=== PATIENT | female | born 1950 | race Caucasian/White ===

== ENCOUNTER 2018-04-20 16:59 | Emergency (ER) | payer MEDICAID, MEDICARE ==
[~2018-04-20] VITALS: Ht 162.6 cm; Wt 92.1 kg
[~2018-04-20 16:59] MED LIST: FAMO20TA8 PO; FLUO20TA28 PO; GABA800T11 PO; LORA-259 PO; LOSA50TA39 PO; PANT40TA4 PO; TRAM50TA2 PO; TRAZ-182 PO
[2018-04-20 17:38] VITALS: BP 173/82
== END 2018-04-20 18:35 | disposition home or self-care (01) ==
LOC: ER 16:59
DX: B37.2 Candidiasis of skin and nail (principal); I10 Essential (primary) hypertension; E11.9 Type 2 diabetes mellitus without complications; J45.909 Unspecified asthma, uncomplicated; E78.00 Pure hypercholesterolemia, unspecified; Z98.890 Other specified postprocedural states; Z79.899 Other long term (current) drug therapy
CPT/HCPCS: 99282; A4606

== ENCOUNTER 2019-01-07 21:45 | Emergency (ER) | payer MEDICARE ==
[~2019-01-07] VITALS: Ht 162.6 cm; Wt 87.1 kg
[2019-01-07 21:52] VITALS: BP 144/85
--- NOTE | 2019-01-07 22:00 | NUR ---
yara. c/o "TOOK TOO MUCH CBD OIL FOR MY ANXIETY. FEELING NAUSEOUS, A BIT WEAK" -SOB AOX4. -NEURO DEFICITS NOTED. AMBULATORY W/O ASSISTANCE. PT AAOX4, VSS. RR EVEN & UNLABORED. DENIES CP, SOB, DIZZINESS @ THIS TIME. AWAITING EVAL BY ERMD/PA & WILL CONT TO MONITOR.
== END 2019-01-07 23:55 | disposition home or self-care (01) ==
LOC: ER 21:49
DX: F12.90 Cannabis use, unspecified, uncomplicated (principal); I10 Essential (primary) hypertension; E11.9 Type 2 diabetes mellitus without complications; J45.909 Unspecified asthma, uncomplicated; E78.00 Pure hypercholesterolemia, unspecified; Z98.890 Other specified postprocedural states; Z79.899 Other long term (current) drug therapy

== ENCOUNTER 2019-02-15 00:43 | Inpatient (IN) | payer BC, MEDICARE ==
[~2019-02-15] VITALS: Ht 162.6 cm; Wt 90.7 kg
--- NOTE | 2019-02-15 01:03 | NUR ---
PT TO BED 10 ER BIB RA FROM HOME C/O FEELING SCARED AFTER WAKING UP 1XHR AGO [employer]. DENIES DRUG USE. PT STATES THAT SHE CALLED 911 AFTER FEELING SICK. AAOX4. NO SOB. BREATHING EVENLY AND UNLABORED. CONNECTED TO MONITOR.
[2019-02-15] MEDS ORDERED: LORAZEPAM 1 MG TABLET ONE (01:12)
--- NOTE | 2019-02-15 01:13 | NUR ---
SEEN AND EXAMINED BY DR. LOPEZ
[2019-02-15] MEDS ORDERED: LORAZEPAM 1 MG TABLET PO ONE (01:30)
--- NOTE | 2019-02-15 02:02 | NUR ---
re-evaluated by Dr. Jon. Patient states that she wants to go to the [facility] admission to see a psychiatrist.
[2019-02-15] MEDS ORDERED: POTASSIUM CHLORIDE 20 MEQ TAB.PRT.SR PO ONE (03:08)
--- NOTE | 2019-02-15 06:31 | NUR ---
Admitted this 70 y/o female on voluntary status.Upon face to face to assessment ,patient is alert,oriented x 2-3,ambulatory , c/o feeling depressed, anxiety,and unable to fall asleep despite of the medications she's taking.Patient appears disheveled,unkempt and easily irritable and sarcastic.Patient was contraband ,refused skin assessment .Reviewed patient's Rights and verbalized understanding.Will continue to monitor q15 min rounds for safety.Will endorse to AM shift RN to continue the admission assessment.
[2019-02-15 07:53] LABS: ALANINE AMINOTRANSFERASE 22 U/L (12-78); ALBUMIN 3.9 g/dL (3.4-5.0); ALKALINE PHOSPHATASE 59 U/L (46-116); ASPARTATE AMINOTRANSFERASE 26 U/L (15-37); BILIRUBIN,TOTAL 0.3 mg/dL (0.2-1.0); CALCIUM, SERUM 10.5 mg/dL (8.5-10.1); CARBON DIOXIDE 36 mmol/L (21-32); CHLORIDE 98 mmol/L (98-107); CREATININE 1.7 mg/dL (0.6-1.3); GLUCOSE 132 mg/dL (74-106); POTASSIUM 2.9 mmol/L (3.5-5.1); SODIUM SERUM 144 mmol/L (136-145); THYROID STIMULATING HORMONE 2.562 uIU/mL (0.358-3.74); TOTAL PROTEIN, SERUM 7.9 g/dL (6.4-8.2); UREA NITROGEN, BLOOD 41 mg/dL (7-18)
[2019-02-15 07:54] LABS: BASOPHILS # (AUTO) 0.1 /CMM (0.0-0.2); BASOPHILS % (AUTO) 1.7 % (0.0-2.0); EOSINOPHILS % (AUTO) 9.6 % (0.0-6.0); HEMATOCRIT 42 % (33-45); LYMPHOCYTES # (AUTO) 1.6 /CMM (0.8-4.8); MEAN CORPUSCULAR HGB CONC 34 g/dl (31.0-36.0); MEAN CORPUSCULAR VOLUME 88 fL (82-100); MONOCYTES # (AUTO) 0.6 /CMM (0.1-1.30); MONOCYTES % (AUTO) 9.7 % (2.0-12.0); NEUTROPHILS # (AUTO) 2.9 /CMM (1.8-8.9); PLATELET COUNT (AUTO) 198 /CMM (150-450); RED BLOOD CELL COUNT(AUTO) 4.71 MIL/uL (4.0-5.2); WHITE BLOOD COUNT (AUTO) 5.7 K/uL (4.3-11.0)
--- NOTE | 2019-02-15 08:08 | NUR ---
late entry: see paper charting due to down time
[2019-02-15 09:27] LABS: SALICYLATE 2.1 mg/dL (2.8-20.0)
[2019-02-15 09:39] LABS: APPEARANCE,URINE SLIGHTLY CLOUDY (CLEAR); BILIRUBIN,URINE NEGATIVE (NEGATIVE); BLOOD, URINE N Ery/uL (NEGATIVE); COLOR,URINE YELLOW (YELLOW); KETONES,URINE NEGATIVE (NEGATIVE); PROTEIN,URINE NEGATIVE (NEGATIVE); UGLUCOSE NEGATIVE (NEGATIVE); UROBILINOGEN,URINE 0.2 EU/dL (0.2)
[2019-02-15 09:40] LABS: BACTERIA,URINE Moderate /HPF (None Seen); LEUKOCYTE ESTERASE ,URINE SMALL (NEGATIVE); NITRITE, URINE NEGATIVE (NEGATIVE); WBC,URINE TOO NUMEROUS TO COUN /HPF (0-3)
[2019-02-15 09:41] LABS: SQUAMOUS EPITHELIAL CELL,UR Moderate /HPF (None Seen)
[2019-02-15] MEDS ORDERED: BLOOD SUGAR DIAGNOSTIC 1 EACH STRIP IN ONE (10:30)
[2019-02-15] MEDS ORDERED: MAGNESIUM HYDROXIDE 30 ML UDC PO PRN (10:30)
[2019-02-15] MEDS ORDERED: MAG HYDROX/AL HYDROX/SIMETH 30 ML UDC PO PRN (10:30)
[2019-02-15 10:47] LABS: ALCOHOL, BLOOD < 3 mg/dL (0-0)
[2019-02-15 10:56] LABS: ACETAMINOPHEN 0 ug/ml (10-30)
[2019-02-15] MEDS ORDERED: LORAZEPAM 1 MG TABLET PO PRN (11:00)
[2019-02-15] MEDS ORDERED: ATOR10TA PO (11:03)
[2019-02-15] MEDS: DULOXETINE HCL 30 MG CAPSULE.DR PO SCH (11:26)
[2019-02-15] MEDS: POTASSIUM CHLORIDE 20 MEQ TAB.PRT.SR PO SCH ×2 (11:29→12:40)
--- NOTE | 2019-02-15 15:10 | NUR ---
GROUP NOTE: SW encouraged pt to participate in group therapy discussing "discharge planning." Pt presented naked in bed, SW asked pt to put clothes on and pt refused stating that she did not want to as she did not like wearing clothes. Pt has an ostomy bag and is not appropriate for group at this time.
[2019-02-15 16:46] VITALS: BP 160/99
[2019-02-15] MEDS: ACETAMINOPHEN 325 MG TABLET PO PRN (19:45)
[2019-02-15 20:47] VITALS: BP 134/74
[2019-02-15] MEDS: ATORVASTATIN 10 MG TABLET PO SCH (21:19)
[2019-02-15] MEDS: FAMOTIDINE (20 MG) 20 MG TABLET PO SCH (21:19)
[2019-02-15] MEDS: ZOLPIDEM TARTRATE 5 MG TABLET PO PRN (21:30)
[2019-02-16 07:25] LABS: ALBUMIN 3.3 g/dL (3.4-5.0); BILIRUBIN,TOTAL 0.3 mg/dL (0.2-1.0); CALCIUM, SERUM 9.4 mg/dL (8.5-10.1); CREATININE 1.4 mg/dL (0.6-1.3); POTASSIUM 3.2 mmol/L (3.5-5.1)
[2019-02-16 07:39] LABS: CHOLESTEROL 155 mg/dL (<200); HDL CHOLESTEROL 77 mg/dL (40-60); LDL 57 mg/dL (0-99); TRIGLYCERIDES 134 mg/dL (30-150)
[2019-02-16 08:00] VITALS: BP 114/66
[2019-02-16] MEDS ORDERED: POTASSIUM CHLORIDE 20 MEQ TAB.PRT.SR PO ONE (09:00)
[2019-02-16] MEDS: DULOXETINE HCL 30 MG CAPSULE.DR PO SCH (09:25)
[2019-02-16] MEDS: AMLODIPINE BESYLATE 5 MG TABLET PO SCH (09:25)
[2019-02-16] MEDS: FAMOTIDINE (20 MG) 20 MG TABLET PO SCH ×2 (09:25→20:58)
[2019-02-16] MEDS: ACETAMINOPHEN 325 MG TABLET PO PRN (13:48)
--- NOTE | 2019-02-16 15:04 | NUR ---
INITIAL DISCHARGE PLAN: Patient wishes to return home to [facility] [address] [address] . SW will help form a safe and proper discharge in collaboration with .
--- NOTE | 2019-02-16 15:05 | NUR ---
GROUP NOTE: SW encouraged pt to participate in group therapy discussing "insight into mental illness." Pt participated stating that she has suffered from depression all her life but had it under control for 20 years until she went to medication and it triggered all her trauma and depression. Pt stated that she "freaked out" and knew she has to be admitted into the hospital. Pt stated that she feel better and is not longer having thought of suicide and wants to be discharged tomorrow 02/17/19. Pt maintained appropriate eye contact, and was easily engaged in conversation. Pts mood appeared euthymic with congruent affect.
[2019-02-16 16:00] VITALS: BP 100/58
[2019-02-16 20:30] VITALS: BP 135/70
[2019-02-16] MEDS: ATORVASTATIN 10 MG TABLET PO SCH (21:05)
[2019-02-16] MEDS: ZOLPIDEM TARTRATE 5 MG TABLET PO PRN (21:55)
[2019-02-17 08:00] VITALS: BP 124/72
[2019-02-17] MEDS: FAMOTIDINE (20 MG) 20 MG TABLET PO SCH ×2 (08:22→20:38)
[2019-02-17] MEDS: DULOXETINE HCL 30 MG CAPSULE.DR PO SCH (08:22)
[2019-02-17] MEDS: ACETAMINOPHEN 325 MG TABLET PO PRN ×3 (08:29→22:26)
[2019-02-17] MEDS: AMLODIPINE BESYLATE 5 MG TABLET PO SCH (08:30)
[2019-02-17 16:00] VITALS: BP 123/61
--- NOTE | 2019-02-17 20:02 | NUR ---
GPS/RN NOTE: PATIENT SLEEPING CALMLY AND QUIETLY. RISE AND FALL OF CHEST NOTED. NO APPARENT DISTRESS NOTED. WILL CONTINUE TO MONITOR
[2019-02-17 20:25] VITALS: BP 124/59
[2019-02-17] MEDS: ATORVASTATIN 10 MG TABLET PO SCH (20:38)
--- NOTE | 2019-02-17 20:39 | NUR ---
GPS/RN NOTE: PATIENT REQUESTED HER ROUTINE NIGHT MEDS GIVEN AT THIS TIME.
--- NOTE | 2019-02-17 22:26 | NUR ---
GPS/RN NOTE: C/O GENERALIZED BODY PAINS, TYLENOL 650 MG TAB PO GIVEN.
[2019-02-17] MEDS: ZOLPIDEM TARTRATE 5 MG TABLET PO PRN (22:38)
--- NOTE | 2019-02-17 22:38 | NUR ---
GPS/RN NOTE: C/O INSOMNIA, AMBIEN 5 MG TAB PO GIVEN.
[2019-02-17 22:41] VITALS: BP 123/61
[2019-02-17 22:42] VITALS: BP 123/61
--- NOTE | 2019-02-18 06:13 | NUR ---
GPS/RN NOTE: SLEPT X8 HOURS LAST NIGHT, DENIES SI/HI. CALM. MED COMPLIANT, AMBULATORY, SELF CARE. PLANS TO BE DISCHARGED HOME ONLY TODAY.
[2019-02-18 08:00] VITALS: BP 121/71
[2019-02-18 08:17] VITALS: BP 121/71
[2019-02-18] MEDS: DULOXETINE HCL 30 MG CAPSULE.DR PO SCH (08:17)
[2019-02-18] MEDS: AMLODIPINE BESYLATE 5 MG TABLET PO SCH (08:17)
[2019-02-18] MEDS: FAMOTIDINE (20 MG) 20 MG TABLET PO SCH (08:17)
[2019-02-18] MEDS: ACETAMINOPHEN 325 MG TABLET PO PRN (09:05)
--- NOTE | 2019-02-18 09:43 | NUR ---
DR. BARGER WITH AN ORDER TO D/C PT. TO HOME AND TO FOLLOW UP WITH PSYCH AND MEDICAL DOCTORS. PT. WITHOUT DISTRESS, DENIES SUICIDAL AND HOMICIDAL.
--- NOTE | 2019-02-18 10:47 | NUR ---
DISCHARGE NOTE: Pt will be discharged home via [facility] to [address] [facility] [address] . Pt has no family to notify. Pts mood is euthymic with congruent affect. Pt denied visual/auditory hallucinations and denied suicidal/homicidal ideation. Pt will follow up with [address] [id number] . on Thursday02/21/19 at 9:00am. Clinical information was faxed to case finisher at fax: [phone]. Pt will also follow up with [facility] Address: [id number] [place] [id number] . The multidisciplinary exit care form was done, printed, signed, and given to the patient.
--- NOTE | 2019-02-18 11:10 | NUR ---
DR. MEJIA MADE AWARE OF THE DISCHARGE AND PROVIDED AND PRESCRIPTIONS. Addendum: 02/18/19 at 1115 by JYOTI BORJA RN PT. SIGNED THE DISCHARGE PAPERS AND BELONGINGS READY. PT. REFUSED FOR SKIN PICTURE AND SAID SOMEBODY TOOK PICTURE ALREADY AND DOESN'T WANT ANOTHER PICTURE.
--- NOTE | 2019-02-18 12:45 | NUR ---
Pt. left the unit via a taxi and wheeled by staff via a wheel chair in the lobby with belongings. Pt. without distress and on stable condition. V/S taken : BP 147/80, RR 18, WY 57, Temp 98.2 and oxygen sat 99%. Addendum: 02/18/19 at 1254 by JYOTI BORJA RN Per pt. she has colostomy bags at home and she is the one that will taking care of the colostomy.
== END 2019-02-18 12:45 | disposition home or self-care (01) | DRG 881 ==
LOC: ER 00:44 → GPS 08:20
PROVIDERS: ADMIT Psychiatry & Neurology Psychiatry
DX: F32.9 Major depressive disorder, single episode, unspecified (principal); N17.0 Acute kidney failure with tubular necrosis; F60.3 Borderline personality disorder; I10 Essential (primary) hypertension; E11.9 Type 2 diabetes mellitus without complications; E78.5 Hyperlipidemia, unspecified; K21.9 Gastro-esophageal reflux disease without esophagitis; E66.9 Obesity, unspecified; Z68.34 Body mass index [BMI] 34.0-34.9, adult; E86.1 Hypovolemia; E83.52 Hypercalcemia; M79.7 Fibromyalgia; Z86.73 Personal history of transient ischemic attack (TIA), and cerebral infarction without residual deficits; F41.9 Anxiety disorder, unspecified; J45.909 Unspecified asthma, uncomplicated; F39 Unspecified mood [affective] disorder
CPT/HCPCS: 36415; 80048-TC; 80053-TC; 80061-TC; 80076-TC; 80305; 81000-TC; 82962-TC; 84443-TC; 85025-TC; 87081-TC; 87086-TC; G0480